=== PATIENT | female | born 1955 | race Caucasian/White ===

== ENCOUNTER 2018-12-21 13:40 | Outpatient (CLI) | payer MEDICARE, MEDICAID ==
[~2018-12-21 13:40] MED LIST: ACET-812 PO; AFRIN NS; DIVA500T2 PO; INSU100I31 SQ; LIDO76.5 TP; TRAZ-219 PO; TRIH2TAB3 PO; ZOLP10TA5 PO
== END 2018-12-21 23:59 | disposition home or self-care (01) ==
LOC: RAD 13:40
DX: G20 Parkinson's disease (principal)
CPT/HCPCS: 95816

== ENCOUNTER 2020-05-02 12:24 | Emergency (ER) | payer MEDICARE, MEDICAID ==
[~2020-05-02] VITALS: Ht 160 cm; Wt 97.2 kg
[~2020-05-02 12:24] MED LIST changes: -AFRIN NS; +ALBU8.5H8 IH; +APIX5TAB3 PO; +CHOL20002 PO; -DIVA500T2 PO; +GABA-530 PO; +HYDR-3965 PO; +HYDR12.55 PO; -INSU100I31 SQ; +INSU100V9 SQ; +LANTUS SUBCUT; -LIDO76.5 TP; +LISI2.5T2 PO; +LURA40TA3 PO; +METO25TA6 PO; +PANT40TA54 PO; -TRAZ-219 PO; +TRAZ-251 PO; -ZOLP10TA5 PO
[2020-05-02 14:08] LABS: BASOPHILS # (AUTO) 0.1 X10'3 (0-0.2); BASOPHILS % (AUTO) 0.4 % (0-1); EOSINOPHILS # (AUTO) 0.2 X10'3 (0-0.9); EOSINOPHILS % (AUTO) 1.4 % (0-6); HEMATOCRIT 43.2 % (35.0-45.0); HEMOGLOBIN 14.4 g/dl (12.0-16.0); LYMPHOCYTES # (AUTO) 1.4 X10'3 (1.1-4.8); LYMPHOCYTES % (AUTO) 11.6 % (21-51); MEAN CORPUSCULAR HEMOGLOBIN 29.7 PG (27.0-31.0); MEAN CORPUSCULAR HGB CONC 33.4 g/dL (33.0-36.5); MEAN CORPUSCULAR VOLUME 89.2 FL (78-98); MEAN PLATELET VOLUME 9.1 FL (7.4-10.4); MONOCYTES # (AUTO) 0.4 X10'3 (0-0.9); MONOCYTES % (AUTO) 3.7 % (2-12); NEUTROPHILS % (AUTO) 82.9 % (42-75); PLATELET COUNT 341 X10'3 (140-440); RED BLOOD COUNT 4.84 X10'6 (4.20-5.60); RED CELL DISTRIBUTION WIDTH 14.8 % (11.5-14.5)
[2020-05-02 14:09] LABS: ALANINE AMINOTRANSFERASE 19 U/L (12-78); ALBUMIN 3.4 G/DL (3.4-5.0); ALBUMIN/GLOBULIN RATIO 0.8 (1.1-1.5); ALKALINE PHOSPHATASE 78 IU/L (46-116); ANION GAP 12 (8-16); ASPARTATE AMINO TRANSFERASE 14 U/L (10-37); BILIRUBIN,TOTAL 0.3 MG/DL (0.1-1.0); BLOOD UREA NITROGEN 34 MG/DL (7-18); BUN/CREATININE RATIO 27.9 (6.6-38.0); CALCIUM 10.3 MG/DL (8.5-10.1); CHLORIDE 100 MMOL/L (99-107); CREATININE 1.22 MG/DL (0.40-0.90); GLUCOSE 255 MG/DL (70-104); POTASSIUM 4.6 MMOL/L (3.5-5.1); SODIUM 138 MMOL/L (135-145); TOTAL CARBON DIOXIDE 25.6 MMOL/L (24-32); TOTAL PROTEIN 7.9 G/DL (6.4-8.2); eGFR 44 ML/MIN
[2020-05-02] MEDS ORDERED: diazepam 5mg tablet PO ONE (14:20)
[2020-05-02] MEDS ORDERED: HYDROcodone/acetaminophen 10/325mg tab PO ONE (15:55)
[2020-05-02] MEDS ORDERED: HYDR-3972 PO (15:57)
[2020-05-02 16:29] VITALS: BP 149/102
== END 2020-05-02 16:43 | disposition home or self-care (01) ==
LOC: ER 12:25
DX: S29.012A Strain of muscle and tendon of back wall of thorax, initial encounter (principal); M54.6 Pain in thoracic spine; R11.0 Nausea; R07.89 Other chest pain; I10 Essential (primary) hypertension; J44.9 Chronic obstructive pulmonary disease, unspecified; E11.9 Type 2 diabetes mellitus without complications; G89.29 Other chronic pain; F41.9 Anxiety disorder, unspecified; F31.9 Bipolar disorder, unspecified; F12.90 Cannabis use, unspecified, uncomplicated; Z86.69 Personal history of other diseases of the nervous system and sense organs; Z90.710 Acquired absence of both cervix and uterus; Z98.890 Other specified postprocedural states; Z72.89 Other problems related to lifestyle; Z88.6 Allergy status to analgesic agent; Z88.8 Allergy status to other drugs, medicaments and biological substances; Z79.4 Long term (current) use of insulin; Z79.899 Other long term (current) drug therapy; X58.XXXA Exposure to other specified factors, initial encounter; Y93.89 Activity, other specified; Y92.89 Other specified places as the place of occurrence of the external cause; Y99.8 Other external cause status
CPT/HCPCS: 36415; 71045; 80053; 83880; 84484; 85025; 93005; 99285

== ENCOUNTER 2020-09-03 11:16 | Emergency (ER) | payer MEDICARE, MEDICAID ==
[~2020-09-03] VITALS: Ht 160 cm; Wt 218.0 kg
[~2020-09-03 11:16] MED LIST changes: -HYDR-3965 PO; +LOP25T PO; -METO25TA6 PO
[2020-09-03] MEDS ORDERED: acetaminophen 325mg tablet PO ONE (12:45)
[2020-09-03] MEDS ORDERED: ondansetron 4mg rapidly disintigrating tab PO ONE ×2 (12:45→14:15)
[2020-09-03] MEDS ORDERED: cyclobenzaprine 10mg tablet PO ONE (12:45)
[2020-09-03 13:31] LABS: CLARITY,URINE CLOUDY (Clear); COLOR,URINE YELLOW (Yellow); GLUCOSE, URINE NEGATIVE (Neg); KETONES,URINE NEGATIVE (Neg); LEUKOCYTE ESTERASE ,URINE NEGATIVE (Neg); NITRITES, URINE NEGATIVE (Neg); OCCULT BLOOD,URINE NEGATIVE (Neg); PROTEIN,URINE NEGATIVE (Neg); UROBILINOGEN,URINE 0.2 E.U/dL (0.2-1.0)
[2020-09-03 13:48] LABS: UA COLLECTION TYPE CLN CATCH MIDSTREAM
[2020-09-03 13:49] LABS: BACTERIA,URINE 2+ /HPF (Neg); HYALINE CASTS 0-3 /LPF (NEGATIVE); RBC,URINE 0-2 /HPF (0-2); SQUAMOUS EPITHELIAL CELL,UR MANY /LPF (FEW); WBC,URINE 0-4 /HPF (0-4)
[2020-09-03] MEDS ORDERED: HYDROcodone/acetaminophen 5mg/325mg tablet PO ONE (14:15)
[2020-09-03 14:53] LABS: BASOPHILS # (AUTO) 0.1 X10'3 (0-0.2); BASOPHILS % (AUTO) 0.8 % (0-1); EOSINOPHILS # (AUTO) 0.1 X10'3 (0-0.9); EOSINOPHILS % (AUTO) 1.1 % (0-6); HEMATOCRIT 38.5 % (35.0-45.0); HEMOGLOBIN 12.6 g/dl (12.0-16.0); LYMPHOCYTES # (AUTO) 1.9 X10'3 (1.1-4.8); LYMPHOCYTES % (AUTO) 22.3 % (21-51); MEAN CORPUSCULAR HEMOGLOBIN 30.2 PG (27.0-31.0); MEAN CORPUSCULAR HGB CONC 32.8 g/dL (33.0-36.5); MEAN PLATELET VOLUME 8.3 FL (7.4-10.4); MONOCYTES # (AUTO) 0.6 X10'3 (0-0.9); MONOCYTES % (AUTO) 7.2 % (2-12); NEUTROPHILS # (AUTO) 5.8 X10'3 (1.8-7.7); NEUTROPHILS % (AUTO) 68.6 % (42-75); PLATELET COUNT 287 X10'3 (140-440); RED BLOOD COUNT 4.18 X10'6 (4.20-5.60); RED CELL DISTRIBUTION WIDTH 14.1 % (11.5-14.5); WHITE BLOOD COUNT 8.5 X10'3 (4.5-11.0)
[2020-09-03 15:06] LABS: ALANINE AMINOTRANSFERASE 16 U/L (12-78); ALBUMIN 3.2 G/DL (3.4-5.0); ALBUMIN/GLOBULIN RATIO 0.8 (1.1-1.5); ALKALINE PHOSPHATASE 73 IU/L (46-116); ANION GAP 3 (8-16); ASPARTATE AMINO TRANSFERASE 12 U/L (10-37); BILIRUBIN,TOTAL 0.2 MG/DL (0.1-1.0); BLOOD UREA NITROGEN 32 MG/DL (7-18); BUN/CREATININE RATIO 19.5 (6.6-38.0); CALCIUM 9.8 MG/DL (8.5-10.1); CHLORIDE 100 MMOL/L (99-107); CREATININE 1.64 MG/DL (0.40-0.90); GLUCOSE 162 MG/DL (70-104); POTASSIUM 4.9 MMOL/L (3.5-5.1); SODIUM 137 MMOL/L (135-145); TOTAL CARBON DIOXIDE 34.5 MMOL/L (24-32); TOTAL PROTEIN 7.4 G/DL (6.4-8.2); eGFR 31 ML/MIN
[2020-09-03 15:13] LABS: MAGNESIUM 1.8 MG/DL (1.5-2.4)
[2020-09-03] MEDS ORDERED: CYCL-1 PO (15:23)
[2020-09-03] MEDS ORDERED: ONDA4TAB6 PO (15:24)
[2020-09-03 15:34] VITALS: BP 117/62
== END 2020-09-03 15:36 | disposition home or self-care (01) ==
LOC: ER 11:17
DX: S29.012A Strain of muscle and tendon of back wall of thorax, initial encounter (principal); B34.9 Viral infection, unspecified; I10 Essential (primary) hypertension; J45.909 Unspecified asthma, uncomplicated; F31.9 Bipolar disorder, unspecified; F12.10 Cannabis abuse, uncomplicated; Z88.6 Allergy status to analgesic agent; Z88.8 Allergy status to other drugs, medicaments and biological substances; Z20.822 Contact with and (suspected) exposure to COVID-19; X58.XXXA Exposure to other specified factors, initial encounter; Y93.89 Activity, other specified; Y92.89 Other specified places as the place of occurrence of the external cause; Y99.8 Other external cause status
CPT/HCPCS: 36415; 71045; 80053; 81001; 82948; 83735; 83880; 84484; 85025; 87635; 93005; 99285; C9803

== ENCOUNTER 2020-10-16 11:27 | Emergency (ER) | payer MEDICARE, MEDICAID ==
[~2020-10-16] VITALS: Ht 160 cm; Wt 99.5 kg
[~2020-10-16 11:27] MED LIST changes: +CYCL-1 PO; +ONDA4TAB6 PO
[2020-10-16 11:39] VITALS: BP 101/69
== END 2020-10-16 18:59 | disposition left against medical advice (07) ==
LOC: ER 11:27
DX: R10.10 Upper abdominal pain, unspecified (principal); Z53.21 Procedure and treatment not carried out due to patient leaving prior to being seen by health care provider

== ENCOUNTER 2020-10-17 09:44 | Emergency (ER) | payer MEDICARE, MEDICAID ==
[~2020-10-17] VITALS: Ht 160 cm; Wt 101.4 kg
[2020-10-17 10:32] VITALS: BP 118/64
[2020-10-17 10:46] LABS: HEMOGLOBIN 13.7 g/dl (12.0-16.0); MEAN CORPUSCULAR HEMOGLOBIN 30.8 PG (27.0-31.0); MEAN PLATELET VOLUME 8.8 FL (7.4-10.4)
[2020-10-17 10:47] LABS: BASOPHILS % (AUTO) 0.6 % (0-1); EOSINOPHILS # (AUTO) 0.3 X10'3 (0-0.9); EOSINOPHILS % (AUTO) 3.2 % (0-6); HEMATOCRIT 40.9 % (35.0-45.0); LYMPHOCYTES # (AUTO) 1.3 X10'3 (1.1-4.8); LYMPHOCYTES % (AUTO) 15.8 % (21-51); MEAN CORPUSCULAR HGB CONC 33.6 g/dL (33.0-36.5); MEAN CORPUSCULAR VOLUME 91.6 FL (78-98); MONOCYTES # (AUTO) 0.6 X10'3 (0-0.9); MONOCYTES % (AUTO) 7.2 % (2-12); NEUTROPHILS % (AUTO) 73.2 % (42-75); PLATELET COUNT 313 X10'3 (140-440); RED BLOOD COUNT 4.46 X10'6 (4.20-5.60); RED CELL DISTRIBUTION WIDTH 14.3 % (11.5-14.5); WHITE BLOOD COUNT 8.2 X10'3 (4.5-11.0)
[2020-10-17 11:03] LABS: ALANINE AMINOTRANSFERASE 13 U/L (12-78); ALBUMIN 3.1 G/DL (3.4-5.0); ALBUMIN/GLOBULIN RATIO 0.7 (1.1-1.5); ALKALINE PHOSPHATASE 90 IU/L (46-116); ANION GAP 8 (8-16); ASPARTATE AMINO TRANSFERASE 13 U/L (10-37); BILIRUBIN,TOTAL 0.2 MG/DL (0.1-1.0); BLOOD UREA NITROGEN 14 MG/DL (7-18); BUN/CREATININE RATIO 11.5 (6.6-38.0); CALCIUM 9.2 MG/DL (8.5-10.1); CHLORIDE 97 MMOL/L (99-107); CREATININE 1.22 MG/DL (0.40-0.90); GLUCOSE 272 MG/DL (70-104); LIPASE 140 U/L (73-393); POTASSIUM 4.6 MMOL/L (3.5-5.1); SODIUM 135 MMOL/L (135-145); TOTAL PROTEIN 7.6 G/DL (6.4-8.2); eGFR 44 ML/MIN
[2020-10-17 11:40] LABS: CLARITY,URINE CLEAR (Clear); COLOR,URINE YELLOW (Yellow); GLUCOSE, URINE NEGATIVE (Neg); KETONES,URINE NEGATIVE (Neg); LEUKOCYTE ESTERASE ,URINE NEGATIVE (Neg); NITRITES, URINE NEGATIVE (Neg); OCCULT BLOOD,URINE NEGATIVE (Neg); PH,URINE 6.5 (4.8-8.0); PROTEIN,URINE NEGATIVE (Neg); UROBILINOGEN,URINE 0.2 E.U/dL (0.2-1.0)
[2020-10-17 11:41] LABS: UA COLLECTION TYPE VOIDED
== END 2020-10-17 12:05 | disposition home or self-care (01) ==
LOC: ER 09:44
DX: E11.65 Type 2 diabetes mellitus with hyperglycemia (principal); R10.84 Generalized abdominal pain; G40.909 Epilepsy, unspecified, not intractable, without status epilepticus; I10 Essential (primary) hypertension; J44.9 Chronic obstructive pulmonary disease, unspecified; F12.90 Cannabis use, unspecified, uncomplicated; G89.29 Other chronic pain; Z90.710 Acquired absence of both cervix and uterus; Z72.89 Other problems related to lifestyle; Z88.8 Allergy status to other drugs, medicaments and biological substances; Z79.899 Other long term (current) drug therapy; Z79.4 Long term (current) use of insulin
CPT/HCPCS: 80053; 81003; 83690; 85025; 99283

== ENCOUNTER 2021-03-28 10:19 | Emergency (ER) | payer MEDICARE, MEDICAID ==
[~2021-03-28] VITALS: Ht 160 cm; Wt 96.8 kg
[~2021-03-28 10:19] MED LIST changes: +ALBU18HF2 INH; -ALBU8.5H8 IH; -CYCL-1 PO; -GABA-530 PO; +GLIP5TAB13 PO; +HYDR-3965 PO; +LISI2.5T14 PO; -LISI2.5T2 PO; -LURA40TA3 PO; +LURA60TA PO; -ONDA4TAB6 PO; +PRAV20TA4 PO; -TRAZ-251 PO; +TRAZ150T78 PO
[2021-03-28] MEDS ORDERED: iohexol 240mg/ml 10ml vial IV ONE (10:30)
[2021-03-28 11:20] LABS: HEMOGLOBIN 14.7 g/dl (12.0-16.0); MEAN CORPUSCULAR HEMOGLOBIN 29.5 PG (27.0-31.0); WHITE BLOOD COUNT 7.7 X10'3 (4.5-11.0)
[2021-03-28 11:23] LABS: BASOPHILS % (AUTO) 0.6 % (0-1); EOSINOPHILS # (AUTO) 0.1 X10'3 (0-0.9); EOSINOPHILS % (AUTO) 1.5 % (0-6); HEMATOCRIT 43.5 % (35.0-45.0); LYMPHOCYTES # (AUTO) 0.8 X10'3 (1.1-4.8); LYMPHOCYTES % (AUTO) 10.8 % (21-51); MEAN CORPUSCULAR HGB CONC 33.8 g/dL (33.0-36.5); MEAN CORPUSCULAR VOLUME 87.4 FL (78-98); MEAN PLATELET VOLUME 8.4 FL (7.4-10.4); MONOCYTES # (AUTO) 0.5 X10'3 (0-0.9); MONOCYTES % (AUTO) 6.7 % (2-12); NEUTROPHILS # (AUTO) 6.2 X10'3 (1.8-7.7); NEUTROPHILS % (AUTO) 80.4 % (42-75); PLATELET COUNT 327 X10'3 (140-440); RED BLOOD COUNT 4.98 X10'6 (4.20-5.60); RED CELL DISTRIBUTION WIDTH 18.1 % (11.5-14.5)
[2021-03-28] MEDS ORDERED: iohexol 300mg/ml 100ml inj. ONE (11:32)
[2021-03-28 11:37] LABS: ALANINE AMINOTRANSFERASE 15 U/L (12-78); ALBUMIN 3.3 G/DL (3.4-5.0); ALBUMIN/GLOBULIN RATIO 0.8 (1.1-1.5); ALKALINE PHOSPHATASE 66 IU/L (46-116); ANION GAP 8 (8-16); ASPARTATE AMINO TRANSFERASE 16 U/L (10-37); BILIRUBIN,TOTAL 0.3 MG/DL (0.1-1.0); BLOOD UREA NITROGEN 12 MG/DL (7-18); BUN/CREATININE RATIO 9.9 (6.6-38.0); CALCIUM 9.7 MG/DL (8.5-10.1); CHLORIDE 97 MMOL/L (99-107); CREATININE 1.21 MG/DL (0.40-0.90); GLUCOSE 140 MG/DL (70-104); LIPASE 67 U/L (73-393); POTASSIUM 4.5 MMOL/L (3.5-5.1); SODIUM 133 MMOL/L (135-145); TOTAL CARBON DIOXIDE 28.3 MMOL/L (24-32); TOTAL PROTEIN 7.3 G/DL (6.4-8.2); eGFR 44 ML/MIN
--- NOTE | 2021-03-28 11:55 | NUR ---
pt requesting water, informed pt of need for CT and results before giving water. verbalized understanding.
--- NOTE | 2021-03-28 12:01 | NUR ---
pt to/from ct without incident.
--- NOTE | 2021-03-28 12:20 | NUR ---
pt ambulated to/from restroom with cane, steady gait.
--- NOTE | 2021-03-28 12:39 | NUR ---
enema given, pt side-lying with call diaz.
[2021-03-28] MEDS ORDERED: BISA10SU60 RC (12:53)
[2021-03-28] MEDS ORDERED: POLY119P2 PO (12:53)
--- NOTE | 2021-03-28 13:00 | NUR ---
pt on bsc, no bm at this time but is passing gas.
--- NOTE | 2021-03-28 14:05 | NUR ---
pt had small formed and liquid stool after soap suds enema. pt called caregiver for ride home.
[2021-03-28 14:10] VITALS: BP 148/88
== END 2021-03-28 14:12 | disposition home or self-care (01) ==
LOC: ER 10:20
DX: K59.00 Constipation, unspecified (principal); R10.84 Generalized abdominal pain; I48.91 Unspecified atrial fibrillation; I10 Essential (primary) hypertension; J44.9 Chronic obstructive pulmonary disease, unspecified; E11.9 Type 2 diabetes mellitus without complications; G89.29 Other chronic pain; F41.9 Anxiety disorder, unspecified; F31.9 Bipolar disorder, unspecified; F12.90 Cannabis use, unspecified, uncomplicated; Z86.69 Personal history of other diseases of the nervous system and sense organs; Z90.710 Acquired absence of both cervix and uterus; Z98.890 Other specified postprocedural states; Z72.89 Other problems related to lifestyle; Z88.6 Allergy status to analgesic agent; Z88.8 Allergy status to other drugs, medicaments and biological substances; Z79.4 Long term (current) use of insulin; Z79.899 Other long term (current) drug therapy
CPT/HCPCS: 36415; 71046; 74177; 80053; 83690; 85025; 93005; 99285; Q9967

== ENCOUNTER 2022-12-02 09:49 | Emergency (ER) | payer MEDICARE, MEDICAID ==
[~2022-12-02] VITALS: Ht 160 cm; Wt 82.0 kg
[~2022-12-02 09:49] MED LIST changes: -ACET-812 PO; -ALBU18HF2 INH; +BUSP10TA11 PO; +CARB1TAB60 PO; -CHOL20002 PO; +GABA-530 PO; -GLIP5TAB13 PO; -HYDR-3965 PO; -HYDR12.55 PO; -LANTUS SUBCUT; -LISI2.5T14 PO; -LOP25T PO; +PANT-47 PO; -PANT40TA54 PO; -TRAZ150T78 PO; +TRAZ300T2 PO
[2022-12-02 09:51] VITALS: TEMP 98.1
[2022-12-02 10:24] LABS: BASOPHILS # (AUTO) 0.1 X10'3 (0-0.2); BASOPHILS % (AUTO) 1.3 % (0-1); EOSINOPHILS # (AUTO) 0.1 X10'3 (0-0.9); HEMATOCRIT 38.2 % (35.0-45.0); HEMOGLOBIN 12.5 g/dl (12.0-16.0); LYMPHOCYTES # (AUTO) 0.8 X10'3 (1.1-4.8); LYMPHOCYTES % (AUTO) 14.5 % (21-51); MEAN CORPUSCULAR HEMOGLOBIN 29.8 PG (27.0-31.0); MEAN CORPUSCULAR HGB CONC 32.7 g/dL (33.0-36.5); MEAN CORPUSCULAR VOLUME 91.3 FL (78-98); MEAN PLATELET VOLUME 9.3 FL (7.4-10.4); MONOCYTES # (AUTO) 0.5 X10'3 (0-0.9); MONOCYTES % (AUTO) 8.8 % (2-12); NEUTROPHILS # (AUTO) 3.9 X10'3 (1.8-7.7); NEUTROPHILS % (AUTO) 73.4 % (42-75); PLATELET COUNT 315 X10'3 (140-440); RED BLOOD COUNT 4.18 X10'6 (4.20-5.60); RED CELL DISTRIBUTION WIDTH 15.6 % (11.5-14.5); WHITE BLOOD COUNT 5.3 X10'3 (4.5-11.0)
[2022-12-02 10:29] LABS: ALBUMIN 3.2 G/DL (3.4-5.0); ALKALINE PHOSPHATASE 64 IU/L (46-116); ANION GAP 9 (8-16); ASPARTATE AMINO TRANSFERASE 12 U/L (10-37); BILIRUBIN,TOTAL 0.5 MG/DL (0.1-1.0); BLOOD UREA NITROGEN 14 MG/DL (7-18); BUN/CREATININE RATIO 9.5 (10.0-20.0); CHLORIDE 102 MMOL/L (99-107); CREATININE 1.47 MG/DL (0.40-0.90); GLUCOSE 261 MG/DL (70-104); POTASSIUM 3.9 MMOL/L (3.5-5.1); SODIUM 137 MMOL/L (135-145); TOTAL CARBON DIOXIDE 26.5 MMOL/L (24-32); TOTAL PROTEIN 6.5 G/DL (6.4-8.2); eCRCL 30 ML/MIN; eGFR 35 ML/MIN
[2022-12-02] MEDS ORDERED: normal saline 1000ml 1,000 ML IVB ONE (10:30)
[2022-12-02] MEDS ORDERED: LORazepam 2 mg/ml vial IV ONE (10:30)
[2022-12-02 10:38] LABS: PRO BRAIN NATRIURETIC PEPTIDE 194 PG/ML (0-125)
[2022-12-02 10:40] LABS: ALANINE AMINOTRANSFERASE < 6 U/L (12-78)
--- NOTE | 2022-12-02 11:03 | NUR ---
Ativan 0.1 mg IV given for anxiety and tremors. EKG was postponed due to tremors and waiting for Ativan to kick in first. ROSALINDA Ramesh was aware about this.
[2022-12-02 11:10] VITALS: PULSE 78; RESP 19; O2SAT 95
[2022-12-02] MEDS ORDERED: normal saline 1000ML IV soln IVB ONE (11:40)
[2022-12-02 12:19] VITALS: BP 125/78
[2022-12-02 12:41] LABS: BILIRUBIN,URINE NEGATIVE (Neg); CLARITY,URINE CLEAR (Clear); COLOR,URINE YELLOW (Yellow); GLUCOSE, URINE 100 mg/dl (Neg); KETONES,URINE TRACE mg/dl (Neg); LEUKOCYTE ESTERASE ,URINE NEGATIVE (Neg); NITRITES, URINE NEGATIVE (Neg); OCCULT BLOOD,URINE TRACE-INTACT (Neg); PH,URINE 5.5 (4.8-8.0); PROTEIN,URINE TRACE mg/dl (Neg)
[2022-12-02 12:49] LABS: UA COLLECTION TYPE STRAIGHT CATH
[2022-12-02 12:51] LABS: BACTERIA,URINE FEW /HPF (Neg); RBC,URINE 0-2 /HPF (0-2); SQUAMOUS EPITHELIAL CELL,UR FEW /LPF (FEW); WBC,URINE 0-4 /HPF (0-4)
[2022-12-02 12:52] LABS: FINE GRANULAR CAST 0-3 /LPF (NEGATIVE); HYALINE CASTS 0-3 /LPF (NEGATIVE); MUCUS STRANDS FEW /LPF (Neg)
== END 2022-12-02 15:22 | disposition home or self-care (01) ==
LOC: ER 09:50
DX: R55 Syncope and collapse (principal); N28.9 Disorder of kidney and ureter, unspecified; I10 Essential (primary) hypertension; J44.9 Chronic obstructive pulmonary disease, unspecified; E11.9 Type 2 diabetes mellitus without complications; F31.9 Bipolar disorder, unspecified; F17.200 Nicotine dependence, unspecified, uncomplicated; F12.90 Cannabis use, unspecified, uncomplicated; Z88.6 Allergy status to analgesic agent; Z88.8 Allergy status to other drugs, medicaments and biological substances; Z79.899 Other long term (current) drug therapy; Z79.84 Long term (current) use of oral hypoglycemic drugs; Z90.710 Acquired absence of both cervix and uterus
CPT/HCPCS: 36415; 71045; 80053; 81001; 83880; 84484; 85025; 93005; 96361; 96374; 99285; J2060; J7030; A4353

== ENCOUNTER 2023-03-16 09:59 | Emergency (ER) | payer MEDICARE, MEDICAID ==
[~2023-03-16] VITALS: Ht 160 cm; Wt 87.0 kg
[2023-03-16] MEDS ORDERED: HYDROcodone/acetaminophen 10/325mg tab PO ONE (11:10)
[2023-03-16 12:26] VITALS: RESP 16
[2023-03-16] MEDS ORDERED: HYDR-3965 PO (12:39)
[2023-03-16 13:09] VITALS: BP 150/86; PULSE 73; TEMP 98; O2SAT 94
== END 2023-03-16 13:37 | disposition home or self-care (01) ==
LOC: ER 09:59
DX: M54.6 Pain in thoracic spine (principal); I10 Essential (primary) hypertension; J44.9 Chronic obstructive pulmonary disease, unspecified; E11.9 Type 2 diabetes mellitus without complications; F39 Unspecified mood [affective] disorder; F12.90 Cannabis use, unspecified, uncomplicated; Z88.6 Allergy status to analgesic agent; Z88.8 Allergy status to other drugs, medicaments and biological substances; Z79.84 Long term (current) use of oral hypoglycemic drugs; Z79.899 Other long term (current) drug therapy; Z90.710 Acquired absence of both cervix and uterus
CPT/HCPCS: 72070; 99285

== ENCOUNTER 2023-09-08 12:01 | Emergency (ER) | payer MEDICARE, MEDICAID ==
[~2023-09-08] VITALS: Ht 160 cm; Wt 84.5 kg
[2023-09-08 12:48] LABS: BASOPHILS % (AUTO) 0.4 % (0-1); EOSINOPHILS # (AUTO) 0.2 X10'3 (0-0.9); EOSINOPHILS % (AUTO) 2.7 % (0-6); HEMATOCRIT 39.8 % (35.0-45.0); HEMOGLOBIN 13.2 g/dl (12.0-16.0); LYMPHOCYTES # (AUTO) 1.1 X10'3 (1.1-4.8); LYMPHOCYTES % (AUTO) 14.5 % (21-51); MEAN CORPUSCULAR HEMOGLOBIN 30.4 PG (27.0-31.0); MEAN CORPUSCULAR HGB CONC 33.1 g/dL (33.0-36.5); MEAN CORPUSCULAR VOLUME 91.8 FL (78-98); MEAN PLATELET VOLUME 9.4 FL (7.4-10.4); MONOCYTES # (AUTO) 0.6 X10'3 (0-0.9); MONOCYTES % (AUTO) 7.5 % (2-12); NEUTROPHILS # (AUTO) 5.5 X10'3 (1.8-7.7); NEUTROPHILS % (AUTO) 74.9 % (42-75); PLATELET COUNT 160 X10'3 (140-440); RED BLOOD COUNT 4.34 X10'6 (4.20-5.60); RED CELL DISTRIBUTION WIDTH 14.8 % (11.5-14.5); WHITE BLOOD COUNT 7.3 X10'3 (4.5-11.0)
[2023-09-08 12:52] VITALS: TEMP 98.3
[2023-09-08 13:08] LABS: ALBUMIN 2.7 G/DL (3.4-5.0); ANION GAP 5 (8-16); BLOOD UREA NITROGEN 25 MG/DL (7-18); BUN/CREATININE RATIO 17.4 (10.0-20.0); CALCIUM 8.4 MG/DL (8.5-10.1); CHLORIDE 102 MMOL/L (99-107); CREATININE 1.44 MG/DL (0.40-0.90); GLUCOSE 207 MG/DL (70-104); POTASSIUM 4.1 MMOL/L (3.5-5.1); PRO BRAIN NATRIURETIC PEPTIDE 146 PG/ML (0-125); SODIUM 135 MMOL/L (135-145); eCRCL 31 ML/MIN; eGFR 36 ML/MIN
[2023-09-08] MEDS: normal saline 1000ML IV soln IVB ONE (13:20)
[2023-09-08 14:29] LABS: ALANINE AMINOTRANSFERASE 12 U/L (12-78); ALBUMIN 3.2 G/DL (3.4-5.0); ALBUMIN/GLOBULIN RATIO 0.9 (1.1-1.5); ALKALINE PHOSPHATASE 49 IU/L (46-116); ANION GAP 6 (8-16); BILIRUBIN,TOTAL 0.4 MG/DL (0.1-1.0); BLOOD UREA NITROGEN 26 MG/DL (7-18); BUN/CREATININE RATIO 17.7 (10.0-20.0); CALCIUM 9.2 MG/DL (8.5-10.1); CHLORIDE 100 MMOL/L (99-107); CREATININE 1.47 MG/DL (0.40-0.90); GLUCOSE 144 MG/DL (70-104); SODIUM 134 MMOL/L (135-145); TOTAL CARBON DIOXIDE 28.3 MMOL/L (24-32); TOTAL PROTEIN 6.8 G/DL (6.4-8.2); eCRCL 30 ML/MIN; eGFR 35 ML/MIN
[2023-09-08 14:30] LABS: ASPARTATE AMINO TRANSFERASE 18 U/L (10-37)
[2023-09-08 14:31] LABS: POTASSIUM 4.8 MMOL/L (3.5-5.1)
[2023-09-08 14:45] LABS: BILIRUBIN,URINE NEGATIVE (Neg); CLARITY,URINE CLEAR (Clear); COLOR,URINE STRAW (Yellow); GLUCOSE, URINE >=1000 mg/dl (Neg); KETONES,URINE NEGATIVE (Neg); LEUKOCYTE ESTERASE ,URINE NEGATIVE (Neg); NITRITES, URINE NEGATIVE (Neg); OCCULT BLOOD,URINE NEGATIVE (Neg); PH,URINE 6.5 (4.8-8.0); PROTEIN,URINE NEGATIVE (Neg); UROBILINOGEN,URINE 0.2 E.U/dL (0.2-1.0)
[2023-09-08 14:49] LABS: UA COLLECTION TYPE VOIDED
[2023-09-08 14:56] LABS: BACTERIA,URINE FEW /HPF (Neg); RBC,URINE 0-2 /HPF (0-2); SQUAMOUS EPITHELIAL CELL,UR MODERATE /LPF (FEW); WBC,URINE 0-4 /HPF (0-4)
[2023-09-08 15:15] VITALS: BP 99/45; PULSE 57; RESP 18; O2SAT 95
== END 2023-09-08 15:24 | disposition home or self-care (01) ==
LOC: ER 12:02
DX: I95.9 Hypotension, unspecified (principal); E86.0 Dehydration; I11.0 Hypertensive heart disease with heart failure; I50.9 Heart failure, unspecified; I48.91 Unspecified atrial fibrillation; J45.909 Unspecified asthma, uncomplicated; J44.9 Chronic obstructive pulmonary disease, unspecified; K21.9 Gastro-esophageal reflux disease without esophagitis; E11.9 Type 2 diabetes mellitus without complications; G89.29 Other chronic pain; M54.9 Dorsalgia, unspecified; F41.9 Anxiety disorder, unspecified; F32.A Depression, unspecified; F20.9 Schizophrenia, unspecified; Z90.710 Acquired absence of both cervix and uterus; F17.200 Nicotine dependence, unspecified, uncomplicated; F12.90 Cannabis use, unspecified, uncomplicated; Z88.8 Allergy status to other drugs, medicaments and biological substances; Z79.4 Long term (current) use of insulin; Z79.899 Other long term (current) drug therapy
CPT/HCPCS: 36415; 71045; 80048; 80053; 81001; 83605; 83880; 84484; 85025; 87040; 93005; 99285; J7030

== ENCOUNTER 2023-12-25 09:17 | Inpatient (IN) | payer MEDICARE, MEDICAID ==
[~2023-12-25] VITALS: Ht 160 cm; Wt 76.5 kg
[2023-12-25] MEDS: normal saline 1000ml 1,000 ML IV ONE (10:03)
[2023-12-25] MEDS: ondansetron/PF 4mg/2ml inj IV ONE (10:04)
[2023-12-25 10:05] LABS: BASOPHILS % (AUTO) 0.6 % (0-1); EOSINOPHILS # (AUTO) 0.1 X10'3 (0-0.9); EOSINOPHILS % (AUTO) 1.9 % (0-6); HEMATOCRIT 33.1 % (35.0-45.0); HEMOGLOBIN 10.7 g/dl (12.0-16.0); LYMPHOCYTES # (AUTO) 0.6 X10'3 (1.1-4.8); MEAN CORPUSCULAR HGB CONC 32.2 g/dL (33.0-36.5); MEAN PLATELET VOLUME 9.2 FL (7.4-10.4); MONOCYTES # (AUTO) 0.4 X10'3 (0-0.9); MONOCYTES % (AUTO) 7.7 % (2-12); NEUTROPHILS # (AUTO) 4.3 X10'3 (1.8-7.7); NEUTROPHILS % (AUTO) 78.8 % (42-75); PLATELET COUNT 239 X10'3 (140-440); RED BLOOD COUNT 3.81 X10'6 (4.20-5.60); WHITE BLOOD COUNT 5.5 X10'3 (4.5-11.0)
[2023-12-25 10:28] LABS: ALKALINE PHOSPHATASE 41 IU/L (46-116); ANION GAP 5 (8-16); ASPARTATE AMINO TRANSFERASE 9 U/L (10-37); BILIRUBIN,TOTAL 0.7 MG/DL (0.1-1.0); CALCIUM 8.6 MG/DL (8.5-10.1); CHLORIDE 100 MMOL/L (99-107); CREATININE 1.14 MG/DL (0.40-0.90); GLUCOSE 113 MG/DL (70-104); POTASSIUM 3.9 MMOL/L (3.5-5.1); SODIUM 136 MMOL/L (135-145); TOTAL CARBON DIOXIDE 31.3 MMOL/L (24-32); eCRCL 38 ML/MIN; eGFR 47 ML/MIN
[2023-12-25 10:37] LABS: BLOOD UREA NITROGEN 20 MG/DL (7-18); BUN/CREATININE RATIO 17.5 (10.0-20.0); PRO BRAIN NATRIURETIC PEPTIDE 283 PG/ML (0-125)
[2023-12-25] MEDS ORDERED: iohexol 300mg/ml 100ml inj. ONE (10:41)
[2023-12-25 10:42] LABS: BILIRUBIN,URINE NEGATIVE (Neg); CLARITY,URINE SLIGHTLY CLOUDY (Clear); COLOR,URINE YELLOW (Yellow); GLUCOSE, URINE 100 mg/dl (Neg); KETONES,URINE TRACE mg/dl (Neg); LEUKOCYTE ESTERASE ,URINE NEGATIVE (Neg); NITRITES, URINE NEGATIVE (Neg); OCCULT BLOOD,URINE NEGATIVE (Neg); PROTEIN,URINE TRACE mg/dl (Neg)
[2023-12-25 10:48] LABS: UA COLLECTION TYPE STRAIGHT CATH
[2023-12-25 10:50] LABS: SQUAMOUS EPITHELIAL CELL,UR MANY /LPF (FEW)
[2023-12-25 10:51] LABS: MUCUS STRANDS FEW /LPF (Neg); TRANSITIONAL EPI CELLS,URINE FEW /HPF
[2023-12-25 10:52] LABS: AMORPHOUS URATES 1+; BACTERIA,URINE NONE SEEN /HPF (Neg); WBC,URINE 0-4 /HPF (0-4)
[2023-12-25 10:53] LABS: ALANINE AMINOTRANSFERASE < 6 U/L (12-78)
[2023-12-25] MEDS ORDERED: CALC-3 PO (12:15)
[2023-12-25] MEDS ORDERED: BISA-155 PO (12:21)
[2023-12-25] MEDS ORDERED: DOCU100C40 PO (12:24)
[2023-12-25] MEDS ORDERED: MIRT-142 PO (12:27)
[2023-12-25] MEDS ORDERED: FLUD0.1T PO (12:31)
[2023-12-25] MEDS: hydrocortisone sod succ/PF 100mg/2ml inj. IV STA (12:43)
[2023-12-25] MEDS ORDERED: magnesium hydroxide 30ml (MOM) UD suspension PO PRN (13:10)
[2023-12-25] MEDS ORDERED: magnesium sulf-water 4G/100mL 100 ML IV PRN (13:10)
[2023-12-25] MEDS ORDERED: magnesium sulf-water 2g/50mL 50 ML IV PRN (13:10)
[2023-12-25] MEDS ORDERED: potassium Cl 40MEQ/1/2NS 520ml 520 ML IV PRN (13:10)
[2023-12-25] MEDS ORDERED: potassium Cl 20 mEq SR tablet PO PRN (13:10)
[2023-12-25] MEDS ORDERED: magnesium Cl slow-release 64mg tablet PO PRN (13:10)
[2023-12-25] MEDS ORDERED: mag hydrox/Alum hydrox/simeth 30ml oral suspension PO PRN (13:10)
[2023-12-25] MEDS ORDERED: ondansetron/PF 4mg/2ml inj IV PRN (13:10)
[2023-12-25 15:37] LABS: HEMOGLOBIN A1C 8.3 % (4.5-6.2)
[2023-12-25 16:36] LABS: CHOL/HDL RATIO 2.5 (0.00-4.99); CHOLESTEROL 106 MG/DL (0-200); HDL CHOLESTEROL 42 MG/DL (35-60); LDL CHOLESTEROL 41 MG/DL (50-100); THYROID STIMULATING HORMONE 0.27 ulU/ml (0.34-4.50); TRIGLYCERIDES 127 MG/DL (20-135)
[2023-12-25] MEDS ORDERED: glucagon, human recombinant 1mg kit SUBCUT PRN (17:55)
[2023-12-25] MEDS ORDERED: dextrose 50%-water 50ml dispensing syringe IV PRN ×2 (17:55)
[2023-12-25] MEDS ORDERED: DEXTROSE 15 GM of carb/4 tabs (each vial/BOTTLE has 4 tablets) PO PRN ×2 (17:55)
[2023-12-25 19:00] VITALS: BP 125/52; PULSE 65; RESP 16; TEMP 97.6; O2SAT 97
[2023-12-25 20:00] VITALS: BP_SYST 113; BP_SYST 126; BP_SYST 89; BP_DIAS 49; BP_DIAS 50; BP_DIAS 59; PULSE 70; PULSE 80; PULSE 82; RESP 17; O2SAT 96
[2023-12-25] MEDS: K and/or MAG REPLACEMENT MC SCH (20:00)
[2023-12-25] MEDS: normal saline 1000ml 1,000 ML IV SCH (20:00)
[2023-12-25] MEDS ORDERED: heparin, porcine 5000 units/ml vial SQ SCH (20:00)
[2023-12-25] MEDS: apixaban 5mg tablet PO SCH (20:48)
[2023-12-25] MEDS: trihexyphenidyl 2mg tablet PO SCH (20:49)
[2023-12-25] MEDS: traZODone 150mg tablet PO SCH (20:49)
[2023-12-25 22:00] VITALS: BP 130/66; PULSE 72; RESP 14; TEMP 97.4; O2SAT 97
[2023-12-25] MEDS: lurasidone 60mg tablet PO SCH (22:16)
[2023-12-25] MEDS: busPIRone 15mg tablet PO SCH (22:17)
[2023-12-25] MEDS: INSULIN LISPRO 100 UNIT/ML INSULN.PEN MULTI-DOSE SQ SCH (22:24)
[2023-12-25] MEDS: insulin glargine (Lantus) pen - multi-dose SQ SCH (22:25)
[2023-12-26] VITALS (9 sets, daily range): BP systolic 68–130; BP diastolic 36–75; PULSE 65–116; RESP 14–20; TEMP 97.6–98.8; O2SAT 91–97
[2023-12-26] MEDS: fluticasone nasal spray 16GM bottle NS SCH (00:10)
[2023-12-26] MEDS: carbidoba-levodopa 25-100mg tablet PO SCH (00:16)
[2023-12-26] MEDS: Melatonin 3mg tablet PO ONE (02:24)
[2023-12-26 07:23] LABS: BASOPHILS % (AUTO) 0.4 % (0-1); EOSINOPHILS # (AUTO) 0.1 X10'3 (0-0.9); EOSINOPHILS % (AUTO) 1.5 % (0-6); HEMATOCRIT 29.3 % (35.0-45.0); HEMOGLOBIN 9.5 g/dl (12.0-16.0); LYMPHOCYTES # (AUTO) 1.5 X10'3 (1.1-4.8); LYMPHOCYTES % (AUTO) 20.5 % (21-51); MEAN CORPUSCULAR HEMOGLOBIN 28.1 PG (27.0-31.0); MEAN CORPUSCULAR HGB CONC 32.4 g/dL (33.0-36.5); MEAN CORPUSCULAR VOLUME 86.9 FL (78-98); MEAN PLATELET VOLUME 8.8 FL (7.4-10.4); MONOCYTES # (AUTO) 0.7 X10'3 (0-0.9); MONOCYTES % (AUTO) 9.3 % (2-12); NEUTROPHILS % (AUTO) 68.3 % (42-75); PLATELET COUNT 228 X10'3 (140-440); RED BLOOD COUNT 3.38 X10'6 (4.20-5.60); RED CELL DISTRIBUTION WIDTH 17.8 % (11.5-14.5); WHITE BLOOD COUNT 7.3 X10'3 (4.5-11.0)
[2023-12-26 07:59] LABS: ALBUMIN 2.7 G/DL (3.4-5.0); ANION GAP 8 (8-16); BLOOD UREA NITROGEN 18 MG/DL (7-18); BUN/CREATININE RATIO 19.6 (10.0-20.0); CALCIUM 8.1 MG/DL (8.5-10.1); CHLORIDE 104 MMOL/L (99-107); CREATININE 0.92 MG/DL (0.40-0.90); FREE T4 (FREE THYROXINE) 1.27 NG/DL (0.73-1.40); MAGNESIUM 1.6 MG/DL (1.5-2.4); POTASSIUM 3.4 MMOL/L (3.5-5.1); SODIUM 139 MMOL/L (135-145); TOTAL CARBON DIOXIDE 27.5 MMOL/L (24-32); eCRCL 47 ML/MIN; eGFR 60 ML/MIN
[2023-12-26 08:03] LABS: GLUCOSE 46 MG/DL (70-104)
[2023-12-26] MEDS: atorvastatin 10mg tablet PO SCH (08:24)
[2023-12-26] MEDS: nystatin 15 GM powder TP SCH (08:24)
[2023-12-26] MEDS: potassium Cl 20 mEq SR tablet PO PRN (08:34)
[2023-12-26] MEDS: normal saline 1000ml 1,000 ML IV SCH (08:35)
[2023-12-26] MEDS: docusate sod 100mg capsule PO SCH (10:20)
[2023-12-26] MEDS: fludrocortisone acetate 0.1mg tablet PO SCH (10:20)
[2023-12-26] MEDS: pantoprazole 40mg Tablet.DR PO SCH (10:21)
[2023-12-26] MEDS: midodrine 5mg tablet PO SCH (10:29)
[2023-12-26] MEDS: LORazepam 2 mg/ml vial IM ONE (13:33)
[2023-12-26] MEDS: gabapentin 100mg capsule PO SCH (15:42)
[2023-12-26] MEDS: acetaminophen 325mg tablet PO PRN (17:39)
[2023-12-26] MEDS ORDERED: docusate sod 100mg capsule PO SCH (20:00)
[2023-12-26] MEDS: calcium carbonate/vitamin D3 tablet PO SCH (20:23)
[2023-12-26] MEDS: Melatonin 3mg tablet PO PRN (20:24)
[2023-12-26] MEDS ORDERED: insulin glargine (Lantus) pen - multi-dose SQ SCH (21:00)
[2023-12-27 02:00] VITALS: BP 135/55; PULSE 65; RESP 18; TEMP 97.8; O2SAT 93
[2023-12-27 06:00] VITALS: BP 128/64; PULSE 66; RESP 18; TEMP 98; O2SAT 95
[2023-12-27 07:09] LABS: BASOPHILS % (AUTO) 0.4 % (0-1); EOSINOPHILS # (AUTO) 0.3 X10'3 (0-0.9); EOSINOPHILS % (AUTO) 4.2 % (0-6); HEMATOCRIT 29.5 % (35.0-45.0); HEMOGLOBIN 9.6 g/dl (12.0-16.0); LYMPHOCYTES # (AUTO) 1.4 X10'3 (1.1-4.8); LYMPHOCYTES % (AUTO) 20.2 % (21-51); MEAN CORPUSCULAR HEMOGLOBIN 28.5 PG (27.0-31.0); MEAN CORPUSCULAR HGB CONC 32.5 g/dL (33.0-36.5); MEAN CORPUSCULAR VOLUME 87.8 FL (78-98); MEAN PLATELET VOLUME 9.2 FL (7.4-10.4); MONOCYTES # (AUTO) 0.5 X10'3 (0-0.9); MONOCYTES % (AUTO) 7.3 % (2-12); NEUTROPHILS # (AUTO) 4.8 X10'3 (1.8-7.7); NEUTROPHILS % (AUTO) 67.9 % (42-75); PLATELET COUNT 235 X10'3 (140-440); RED BLOOD COUNT 3.36 X10'6 (4.20-5.60); RED CELL DISTRIBUTION WIDTH 17.8 % (11.5-14.5); WHITE BLOOD COUNT 7.1 X10'3 (4.5-11.0)
[2023-12-27 07:16] LABS: ALBUMIN 2.4 G/DL (3.4-5.0); ANION GAP 4 (8-16); BLOOD UREA NITROGEN 17 MG/DL (7-18); BUN/CREATININE RATIO 17.7 (10.0-20.0); CALCIUM 7.9 MG/DL (8.5-10.1); CHLORIDE 109 MMOL/L (99-107); CREATININE 0.96 MG/DL (0.40-0.90); GLUCOSE 124 MG/DL (70-104); MAGNESIUM 2.1 MG/DL (1.5-2.4); POTASSIUM 4.9 MMOL/L (3.5-5.1); SODIUM 141 MMOL/L (135-145); TOTAL CARBON DIOXIDE 28.3 MMOL/L (24-32); eCRCL 45 ML/MIN; eGFR 57 ML/MIN
[2023-12-27 08:00] VITALS: BP_SYST 102; BP_SYST 119; BP_SYST 125; BP_DIAS 47; BP_DIAS 54; BP_DIAS 56; PULSE 110; PULSE 67; PULSE 73; RESP 18; O2SAT 95
[2023-12-27 11:00] VITALS: BP 129/65; PULSE 76; RESP 21; TEMP 98.5; O2SAT 91
[2023-12-27 15:00] VITALS: BP 92/57; PULSE 82; RESP 13; TEMP 98.6; O2SAT 90
[2023-12-27] MEDS ORDERED: MIDO5TAB4 PO (15:07)
== END 2023-12-27 17:30 | disposition home or self-care (01) | DRG 312 ==
LOC: ER 09:18 → ED HOLD 13:14 → PCU 3S 18:50
PROVIDERS: ADMIT Family Medicine; ATTEND Family Medicine
PROC: BW211ZZ Computerized Tomography (CT Scan) of Abdomen and Pelvis using Low Osmolar Contrast (ICD-10-PCS; principal; 2023-12-25)
DX: I95.1 Orthostatic hypotension (principal); E27.49 Other adrenocortical insufficiency; I48.91 Unspecified atrial fibrillation; E86.0 Dehydration; G20.A1 Parkinson's disease without dyskinesia, without mention of fluctuations; I11.0 Hypertensive heart disease with heart failure; I50.9 Heart failure, unspecified; F31.9 Bipolar disorder, unspecified; G89.29 Other chronic pain; E11.9 Type 2 diabetes mellitus without complications; G90.9 Disorder of the autonomic nervous system, unspecified; J44.9 Chronic obstructive pulmonary disease, unspecified; M54.9 Dorsalgia, unspecified; K21.9 Gastro-esophageal reflux disease without esophagitis; F41.9 Anxiety disorder, unspecified; Z88.8 Allergy status to other drugs, medicaments and biological substances; Z88.6 Allergy status to analgesic agent; Z79.4 Long term (current) use of insulin; Z79.899 Other long term (current) drug therapy; Z79.01 Long term (current) use of anticoagulants; Z90.710 Acquired absence of both cervix and uterus
CPT/HCPCS: 36415; 70450; 70544; 70547; 70551; 71045; 74177; 80048; 80053; 80061; 81001; 82948; 83036; 83735; 83880; 84439; 84443; 84484; 85025; 87081; 93005; 93306; 93880; 96374; 97116; 97162; 97530; 99285; A4353; C1758; G0378; J1720; J1815; J2060; J2405; J7030; Q9967

== ENCOUNTER 2024-01-08 15:48 | Inpatient (IN) | payer MEDICARE, MEDICAID ==
[~2024-01-08] VITALS: Ht 160 cm; Wt 75.6 kg
[~2024-01-08 15:48] MED LIST changes: +BISA-155 PO; +CALC-3 PO; +DOCU100C40 PO; +FLUD0.1T PO; +MIDO5TAB4 PO; +MIRT-142 PO
[2024-01-08 19:01] LABS: BASOPHILS % (AUTO) 0.6 % (0-1); EOSINOPHILS % (AUTO) 0.8 % (0-6); HEMATOCRIT 28.6 % (35.0-45.0); HEMOGLOBIN 9.3 g/dl (12.0-16.0); LYMPHOCYTES # (AUTO) 0.6 X10'3 (1.1-4.8); LYMPHOCYTES % (AUTO) 9.7 % (21-51); MEAN CORPUSCULAR HEMOGLOBIN 27.8 PG (27.0-31.0); MEAN CORPUSCULAR HGB CONC 32.4 g/dL (33.0-36.5); MEAN CORPUSCULAR VOLUME 85.8 FL (78-98); MEAN PLATELET VOLUME 8.4 FL (7.4-10.4); MONOCYTES # (AUTO) 0.4 X10'3 (0-0.9); MONOCYTES % (AUTO) 6.3 % (2-12); NEUTROPHILS # (AUTO) 4.7 X10'3 (1.8-7.7); NEUTROPHILS % (AUTO) 82.6 % (42-75); PLATELET COUNT 380 X10'3 (140-440); RED BLOOD COUNT 3.34 X10'6 (4.20-5.60); RED CELL DISTRIBUTION WIDTH 19.3 % (11.5-14.5); WHITE BLOOD COUNT 5.7 X10'3 (4.5-11.0)
[2024-01-08 19:11] LABS: BILIRUBIN,URINE NEGATIVE (Neg); CLARITY,URINE SLIGHTLY CLOUDY (Clear); COLOR,URINE YELLOW (Yellow); GLUCOSE, URINE 100 mg/dl (Neg); KETONES,URINE 15 mg/dl (Neg); LEUKOCYTE ESTERASE ,URINE TRACE (Neg); NITRITES, URINE POSITIVE (Neg); OCCULT BLOOD,URINE NEGATIVE (Neg); PH,URINE 6.5 (4.8-8.0); PROTEIN,URINE TRACE mg/dl (Neg)
[2024-01-08 19:15] LABS: UA COLLECTION TYPE VOIDED
[2024-01-08 19:15] LABS: MAGNESIUM 1.6 MG/DL (1.5-2.4); PRO BRAIN NATRIURETIC PEPTIDE 297 PG/ML (0-125)
[2024-01-08 19:43] LABS: BACTERIA,URINE 4+ /HPF (Neg); RBC,URINE 0-2 /HPF (0-2); SQUAMOUS EPITHELIAL CELL,UR MODERATE /LPF (FEW)
[2024-01-08 19:44] LABS: FINE GRANULAR CAST 0-3 /LPF (NEGATIVE); MUCUS STRANDS NONE SEEN /LPF (Neg); TRANSITIONAL EPI CELLS,URINE FEW /HPF
[2024-01-08 20:02] LABS: ANION GAP 11 (8-16); BLOOD UREA NITROGEN 14 MG/DL (7-18); BUN/CREATININE RATIO 12.3 (10.0-20.0); CALCIUM 8.5 MG/DL (8.5-10.1); CHLORIDE 100 MMOL/L (99-107); CREATININE 1.14 MG/DL (0.40-0.90); GLUCOSE 92 MG/DL (70-104); SODIUM 136 MMOL/L (135-145); TOTAL CARBON DIOXIDE 24.7 MMOL/L (24-32); eCRCL 38 ML/MIN; eGFR 47 ML/MIN
[2024-01-08 21:06] LABS: POTASSIUM 2.9 MMOL/L (3.5-5.1)
[2024-01-08] MEDS: CefTRIAXone/D5W-Rocephin 1gm 50 ML IV ONE (21:41)
[2024-01-08] MEDS: midodrine 5mg tablet PO ONE (21:42)
[2024-01-09] VITALS (9 sets, daily range): BP systolic 111–145; BP diastolic 41–71; PULSE 65–107; RESP 14–20; TEMP 97.3–98.5; O2SAT 90–97
[2024-01-09] MEDS: Melatonin 3mg tablet ONE (03:49)
[2024-01-09] MEDS ORDERED: mag hydrox/Alum hydrox/simeth 30ml oral suspension PO PRN (03:55)
[2024-01-09] MEDS ORDERED: magnesium Cl slow-release 64mg tablet PO PRN (03:55)
[2024-01-09] MEDS ORDERED: ondansetron/PF 4mg/2ml inj IV PRN (03:55)
[2024-01-09] MEDS ORDERED: potassium Cl 40MEQ/1/2NS 520ml 520 ML IV PRN (03:55)
[2024-01-09] MEDS ORDERED: magnesium sulf-water 2g/50mL 50 ML IV PRN (03:55)
[2024-01-09] MEDS ORDERED: magnesium sulf-water 4G/100mL 100 ML IV PRN (03:55)
[2024-01-09] MEDS ORDERED: potassium Cl 20 mEq SR tablet PO PRN (03:55)
[2024-01-09] MEDS ORDERED: magnesium hydroxide 30ml (MOM) UD suspension PO PRN (03:55)
[2024-01-09] MEDS ORDERED: DEXTROSE 15 GM of carb/4 tabs (each vial/BOTTLE has 4 tablets) PO PRN ×2 (04:00)
[2024-01-09] MEDS ORDERED: dextrose 50%-water 50ml dispensing syringe IV PRN ×2 (04:00)
[2024-01-09] MEDS ORDERED: glucagon, human recombinant 1mg kit SUBCUT PRN (04:00)
[2024-01-09] MEDS: potassium Cl 20 mEq SR tablet PO PRN (04:39)
[2024-01-09] MEDS: Melatonin 3mg tablet PO ONE (04:39)
[2024-01-09] MEDS: normal saline 1000ml 1,000 ML IV SCH (04:42)
[2024-01-09] MEDS: INSULIN LISPRO 100 UNIT/ML INSULN.PEN MULTI-DOSE SQ SCH (07:00)
[2024-01-09] MEDS: docusate sod 100mg capsule PO SCH ×2 (08:00→08:19)
[2024-01-09] MEDS: apixaban 5mg tablet PO SCH (08:10)
[2024-01-09] MEDS: gabapentin 100mg capsule PO SCH (08:16)
[2024-01-09] MEDS: pantoprazole 40mg Tablet.DR PO SCH (08:16)
[2024-01-09] MEDS: atorvastatin 10mg tablet PO SCH (08:17)
[2024-01-09] MEDS: fludrocortisone acetate 0.1mg tablet PO SCH (08:17)
[2024-01-09] MEDS: calcium carbonate/vitamin D3 tablet PO SCH (08:17)
[2024-01-09] MEDS: midodrine 5mg tablet PO SCH (08:19)
[2024-01-09] MEDS: bisacodyl 5mg tablet.DR PO SCH (08:19)
[2024-01-09] MEDS: K and/or MAG REPLACEMENT MC SCH (08:27)
[2024-01-09 11:33] LABS: BASOPHILS % (AUTO) 0.5 % (0-1); EOSINOPHILS # (AUTO) 0.2 X10'3 (0-0.9); EOSINOPHILS % (AUTO) 3.5 % (0-6); HEMATOCRIT 25.8 % (35.0-45.0); HEMOGLOBIN 8.5 g/dl (12.0-16.0); LYMPHOCYTES # (AUTO) 1.4 X10'3 (1.1-4.8); LYMPHOCYTES % (AUTO) 22.5 % (21-51); MEAN CORPUSCULAR HEMOGLOBIN 27.7 PG (27.0-31.0); MEAN CORPUSCULAR VOLUME 84.1 FL (78-98); MEAN PLATELET VOLUME 8.4 FL (7.4-10.4); MONOCYTES # (AUTO) 0.4 X10'3 (0-0.9); MONOCYTES % (AUTO) 6.7 % (2-12); NEUTROPHILS # (AUTO) 4.1 X10'3 (1.8-7.7); NEUTROPHILS % (AUTO) 66.8 % (42-75); PLATELET COUNT 363 X10'3 (140-440); RED BLOOD COUNT 3.06 X10'6 (4.20-5.60); RED CELL DISTRIBUTION WIDTH 19.1 % (11.5-14.5); WHITE BLOOD COUNT 6.2 X10'3 (4.5-11.0)
[2024-01-09 11:36] LABS: ALANINE AMINOTRANSFERASE 7 U/L (12-78); ALBUMIN 2.8 G/DL (3.4-5.0); ALKALINE PHOSPHATASE 42 IU/L (46-116); ANION GAP 6 (8-16); ASPARTATE AMINO TRANSFERASE 11 U/L (10-37); BILIRUBIN,TOTAL 0.3 MG/DL (0.1-1.0); BLOOD UREA NITROGEN 15 MG/DL (7-18); BUN/CREATININE RATIO 17.4 (10.0-20.0); CALCIUM 8.1 MG/DL (8.5-10.1); CHLORIDE 103 MMOL/L (99-107); CREATININE 0.86 MG/DL (0.40-0.90); GLUCOSE 60 MG/DL (70-104); POTASSIUM 4.2 MMOL/L (3.5-5.1); SODIUM 138 MMOL/L (135-145); TOTAL CARBON DIOXIDE 29.2 MMOL/L (24-32); TOTAL PROTEIN 5.6 G/DL (6.4-8.2); eCRCL 50 ML/MIN; eGFR 65 ML/MIN
[2024-01-09] MEDS: acetaminophen 325mg tablet PO PRN (12:44)
[2024-01-09] MEDS: CefTRIAXone/D5W-Rocephin 1gm 50 ML IV SCH (19:11)
[2024-01-09] MEDS: Melatonin 3mg tablet PO SCH (22:28)
[2024-01-10] VITALS (9 sets, daily range): BP systolic 111–187; BP diastolic 57–108; PULSE 63–99; RESP 13–20; TEMP 96.9–98.9; O2SAT 92–98
[2024-01-10] MEDS: lurasidone 60mg tablet PO SCH (00:08)
[2024-01-10 07:50] LABS: BASOPHILS % (AUTO) 0.5 % (0-1); EOSINOPHILS # (AUTO) 0.5 X10'3 (0-0.9); EOSINOPHILS % (AUTO) 6.5 % (0-6); HEMATOCRIT 29.4 % (35.0-45.0); HEMOGLOBIN 9.5 g/dl (12.0-16.0); LYMPHOCYTES # (AUTO) 1.6 X10'3 (1.1-4.8); LYMPHOCYTES % (AUTO) 22.1 % (21-51); MEAN CORPUSCULAR HEMOGLOBIN 27.7 PG (27.0-31.0); MEAN CORPUSCULAR HGB CONC 32.5 g/dL (33.0-36.5); MEAN CORPUSCULAR VOLUME 85.1 FL (78-98); MEAN PLATELET VOLUME 8.6 FL (7.4-10.4); MONOCYTES # (AUTO) 0.5 X10'3 (0-0.9); MONOCYTES % (AUTO) 6.8 % (2-12); NEUTROPHILS # (AUTO) 4.7 X10'3 (1.8-7.7); NEUTROPHILS % (AUTO) 64.1 % (42-75); PLATELET COUNT 387 X10'3 (140-440); RED BLOOD COUNT 3.45 X10'6 (4.20-5.60); RED CELL DISTRIBUTION WIDTH 20.2 % (11.5-14.5); WHITE BLOOD COUNT 7.4 X10'3 (4.5-11.0)
[2024-01-10] MEDS: fludrocortisone acetate 0.1mg tablet PO SCH (08:30)
[2024-01-10 08:36] LABS: ALANINE AMINOTRANSFERASE 7 U/L (12-78); ALBUMIN 2.9 G/DL (3.4-5.0); ALKALINE PHOSPHATASE 43 IU/L (46-116); ANION GAP 5 (8-16); ASPARTATE AMINO TRANSFERASE 12 U/L (10-37); BILIRUBIN,TOTAL 0.3 MG/DL (0.1-1.0); BLOOD UREA NITROGEN 13 MG/DL (7-18); BUN/CREATININE RATIO 17.3 (10.0-20.0); CALCIUM 8.2 MG/DL (8.5-10.1); CHLORIDE 106 MMOL/L (99-107); CREATININE 0.75 MG/DL (0.40-0.90); GLUCOSE 123 MG/DL (70-104); MAGNESIUM 1.9 MG/DL (1.5-2.4); POTASSIUM 4.3 MMOL/L (3.5-5.1); SODIUM 136 MMOL/L (135-145); TOTAL CARBON DIOXIDE 25.5 MMOL/L (24-32); TOTAL PROTEIN 5.9 G/DL (6.4-8.2); eCRCL 58 ML/MIN; eGFR 76 ML/MIN
[2024-01-10] MEDS: insulin glargine (Lantus) pen - multi-dose SQ SCH (21:55)
[2024-01-11] VITALS (8 sets, daily range): BP systolic 100–160; BP diastolic 20–86; PULSE 70–113; RESP 16–26; TEMP 96.7–98.3; O2SAT 92–99
[2024-01-11] MEDS: carbidoba-levodopa 25-100mg tablet PO SCH (00:01)
[2024-01-11 07:57] LABS: ALBUMIN 2.7 G/DL (3.4-5.0); ALBUMIN/GLOBULIN RATIO 0.9 (1.1-1.5); ALKALINE PHOSPHATASE 45 IU/L (46-116); ANION GAP 5 (8-16); ASPARTATE AMINO TRANSFERASE 11 U/L (10-37); BILIRUBIN,TOTAL 0.2 MG/DL (0.1-1.0); BLOOD UREA NITROGEN 12 MG/DL (7-18); BUN/CREATININE RATIO 16.7 (10.0-20.0); CALCIUM 8.1 MG/DL (8.5-10.1); CHLORIDE 105 MMOL/L (99-107); CREATININE 0.72 MG/DL (0.40-0.90); GLUCOSE 108 MG/DL (70-104); MAGNESIUM 1.8 MG/DL (1.5-2.4); POTASSIUM 3.8 MMOL/L (3.5-5.1); SODIUM 139 MMOL/L (135-145); TOTAL CARBON DIOXIDE 28.7 MMOL/L (24-32); TOTAL PROTEIN 5.7 G/DL (6.4-8.2); eCRCL 60 ML/MIN; eGFR 80 ML/MIN
[2024-01-11 08:06] LABS: BASOPHILS % (AUTO) 0.6 % (0-1); EOSINOPHILS # (AUTO) 0.4 X10'3 (0-0.9); EOSINOPHILS % (AUTO) 6.3 % (0-6); HEMATOCRIT 27.5 % (35.0-45.0); LYMPHOCYTES # (AUTO) 1.4 X10'3 (1.1-4.8); LYMPHOCYTES % (AUTO) 19.7 % (21-51); MEAN CORPUSCULAR HEMOGLOBIN 27.5 PG (27.0-31.0); MEAN CORPUSCULAR HGB CONC 32.5 g/dL (33.0-36.5); MEAN CORPUSCULAR VOLUME 84.6 FL (78-98); MEAN PLATELET VOLUME 8.6 FL (7.4-10.4); MONOCYTES # (AUTO) 0.5 X10'3 (0-0.9); MONOCYTES % (AUTO) 7.6 % (2-12); NEUTROPHILS # (AUTO) 4.6 X10'3 (1.8-7.7); NEUTROPHILS % (AUTO) 65.8 % (42-75); PLATELET COUNT 396 X10'3 (140-440); RED BLOOD COUNT 3.26 X10'6 (4.20-5.60); RED CELL DISTRIBUTION WIDTH 19.5 % (11.5-14.5); WHITE BLOOD COUNT 7.1 X10'3 (4.5-11.0)
[2024-01-11 08:39] LABS: ALANINE AMINOTRANSFERASE < 6 U/L (12-78)
[2024-01-11] MEDS: insulin glargine (Lantus) pen - multi-dose SQ SCH (22:32)
[2024-01-12 02:00] VITALS: BP 140/67; PULSE 87; RESP 16; TEMP 98.2; O2SAT 94
[2024-01-12 06:00] VITALS: BP 149/72; PULSE 69; RESP 19; TEMP 97.9; O2SAT 92
[2024-01-12 07:44] LABS: BASOPHILS % (AUTO) 0.7 % (0-1); EOSINOPHILS # (AUTO) 0.3 X10'3 (0-0.9); EOSINOPHILS % (AUTO) 5.1 % (0-6); HEMOGLOBIN 8.6 g/dl (12.0-16.0); LYMPHOCYTES # (AUTO) 1.3 X10'3 (1.1-4.8); LYMPHOCYTES % (AUTO) 18.7 % (21-51); MEAN CORPUSCULAR HEMOGLOBIN 27.8 PG (27.0-31.0); MEAN CORPUSCULAR VOLUME 84.3 FL (78-98); MEAN PLATELET VOLUME 7.7 FL (7.4-10.4); MONOCYTES # (AUTO) 0.5 X10'3 (0-0.9); MONOCYTES % (AUTO) 7.2 % (2-12); NEUTROPHILS # (AUTO) 4.6 X10'3 (1.8-7.7); NEUTROPHILS % (AUTO) 68.3 % (42-75); PLATELET COUNT 353 X10'3 (140-440); RED BLOOD COUNT 3.09 X10'6 (4.20-5.60); RED CELL DISTRIBUTION WIDTH 20.2 % (11.5-14.5); WHITE BLOOD COUNT 6.8 X10'3 (4.5-11.0)
[2024-01-12 08:00] VITALS: BP_SYST 109; BP_SYST 123; BP_SYST 135; BP_DIAS 66; BP_DIAS 67; BP_DIAS 68; PULSE 102; PULSE 80; PULSE 84; RESP 19; O2SAT 92
[2024-01-12] MEDS: midodrine tablet 2.5 MG TABLET PO SCH (08:00)
[2024-01-12 08:35] LABS: ALBUMIN 2.6 G/DL (3.4-5.0); ALBUMIN/GLOBULIN RATIO 0.9 (1.1-1.5); ALKALINE PHOSPHATASE 52 IU/L (46-116); ANION GAP 6 (8-16); ASPARTATE AMINO TRANSFERASE 9 U/L (10-37); BILIRUBIN,TOTAL 0.3 MG/DL (0.1-1.0); BLOOD UREA NITROGEN 11 MG/DL (7-18); BUN/CREATININE RATIO 13.6 (10.0-20.0); CALCIUM 8.2 MG/DL (8.5-10.1); CHLORIDE 105 MMOL/L (99-107); CREATININE 0.81 MG/DL (0.40-0.90); GLUCOSE 166 MG/DL (70-104); MAGNESIUM 1.8 MG/DL (1.5-2.4); POTASSIUM 3.7 MMOL/L (3.5-5.1); SODIUM 139 MMOL/L (135-145); TOTAL CARBON DIOXIDE 27.7 MMOL/L (24-32); TOTAL PROTEIN 5.6 G/DL (6.4-8.2); eCRCL 53 ML/MIN; eGFR 70 ML/MIN
[2024-01-12 08:44] LABS: ALANINE AMINOTRANSFERASE < 6 U/L (12-78)
[2024-01-12 09:37] LABS: ANISOCYTOSIS 3+; PLATELET ESTIMATE NORMAL
[2024-01-12 09:38] LABS: ELLIPTOCYTES FEW; STOMATOCYTES FEW
[2024-01-12 11:00] VITALS: BP 147/70; PULSE 80; RESP 25; TEMP 97.5; O2SAT 97
== END 2024-01-12 15:26 | DRG 312 ==
LOC: ER 15:49 → ED HOLD 01-09 00:47 → EDBEDREQ 01-09 01:19 → PCU 3S 01-09 02:00
PROVIDERS: ADMIT Internal Medicine Critical Care Medicine; ATTEND Family Medicine
DX: I95.1 Orthostatic hypotension (principal); N17.0 Acute kidney failure with tubular necrosis; N30.90 Cystitis, unspecified without hematuria; E86.0 Dehydration; I48.91 Unspecified atrial fibrillation; F31.9 Bipolar disorder, unspecified; F41.9 Anxiety disorder, unspecified; G89.29 Other chronic pain; K21.9 Gastro-esophageal reflux disease without esophagitis; M54.9 Dorsalgia, unspecified; J44.9 Chronic obstructive pulmonary disease, unspecified; I11.0 Hypertensive heart disease with heart failure; I50.9 Heart failure, unspecified; G20.A1 Parkinson's disease without dyskinesia, without mention of fluctuations; E11.9 Type 2 diabetes mellitus without complications; E78.5 Hyperlipidemia, unspecified; Z88.8 Allergy status to other drugs, medicaments and biological substances; Z90.710 Acquired absence of both cervix and uterus; Z79.01 Long term (current) use of anticoagulants; Z79.899 Other long term (current) drug therapy; Z79.4 Long term (current) use of insulin; Z98.891 History of uterine scar from previous surgery
CPT/HCPCS: 36415; 80048; 80053; 81001; 82948; 83036; 83735; 83880; 84145; 84484; 85008; 85025; 87081; 93005; 96365; 97110; 97116; 97162; 99285; A4615; C1758; G0378; J0696; J1815; J7030